=== PATIENT | male | born 1960 | race Two or more races ===

== ENCOUNTER 2016-12-06 18:54 | Emergency (ER) | payer OTHER ==
[~2016-12-06] VITALS: Ht 160 cm; Wt 58.5 kg
[~2016-12-06 18:54] MED LIST: ACETAMINOPHEN325 M1 ORAL; AMLODIPINE BESY10 MG ORAL; ASPIR 8181 MG ORAL; ASPIRIN EC81 MG ORAL; BISAC-EVAC10 MG RECTAL; CHLORTHALIDONE25 MG ORAL; COLACE250 MG ORAL; DIOVAN80 MG ORAL; GLUCOPHAGE850 MG ORAL; HUMALOG100 UNIT/1 SUBQ; KEFLEX500 M1 GT; LANTUS SOL100 UNIT/1 SUBQ; LISINOPRIL20 MG ORAL; LISINOPRIL40 MG ORAL; METFORMIN HCL850 M1 ORAL; MORPHINE SU4 MG/1 ML IVP; Morphine Sulfate IVP; NOVOLOG100 UNITS1 SUBQ; OMEPRAZOLE20 M2 ORAL; PROTONIX40 MG ORAL; ZOFRAN 4 MG4 MG/2 ML IVP; glyberide; metformin
[2016-12-06 19:35] VITALS: BP 101/68
[2016-12-06] MEDS ORDERED: PEPCID40 MG PO (21:03)
[2016-12-06] MEDS ORDERED: NORCO 5-325 TA1 EAC1 ORAL (21:03)
[2016-12-06] MEDS ORDERED: AUGMENTIN 500-1 EACH ORAL (21:03)
[2016-12-06 21:10] VITALS: BP 110/70
[2016-12-06 21:15] VITALS: BP 110/70
--- NOTE | 2016-12-06 21:37 | Emergency Room Report ---
History of Present Illness General Chief Complaint: Abdominal Pain Source: Patient Present Illness HPI The patient is a 56-year-old male presenting for tooth pain and abdominal pain. He states that he had a tooth extraction 3 days prior and he was not prescribed any pain medications or antibiotics. Pain has been increasing and is now an 8/10 dull ache and does not radiate from the left lower jaw. Worse with biting. He is also complaining of mid upper abdominal pain described as a 5/10 dull ache. Does not radiate. He also admits to nausea but denies vomiting. He denies fever, chills, chest pain, shortness of breath, diarrhea, constipation Allergies: Coded Allergies: NO KNOWN ALLERGIES (Unverified Allergy, Unknown, 02/13/15) Patient History Past Medical History: see triage record Pertinent Family History: none Reviewed Nursing Documentation: PMH: Agreed, PSxH: Agreed Nursing Documentation-PMH Past Medical History: No History, Except For Hx Cardiac Problems: No Hx Diabetes: Yes Hx Cancer: No Hx Gastrointestinal Problems: Yes Hx Neurological Problems: No Review of Systems All Other Systems: negative except mentioned in HPI Physical Exam Vital Signs Date Time Temp Pulse Resp B/P Pulse Ox O2 Delivery O2 Flow Rate FiO2 12/06/16 18:59 99.5 108 18 99/66 100 Room Air Sp02 EP Interpretation: reviewed, normal General Appearance: no apparent distress, alert, GCS 15, non-toxic Head: normocephalic, atraumatic Eyes: bilateral eye PERRL, bilateral eye normal inspection ENT: hearing grossly normal, normal pharynx, no angioedema, normal voice, other - L lower premolar extracted. Surrounding erythema. No DC. No bleeding. Tender Neck: full range of motion, supple/symm/no masses Respiratory: chest non-tender, lungs clear, normal breath sounds, speaking full sentences Cardiovascular #1: regular rate, rhythm, no edema Gastrointestinal: normal bowel sounds, soft, no guarding, tenderness - epigastric Genitourinary: normal inspection, no CVA tenderness Musculoskeletal: back normal, gait/station normal, normal range of motion, non- tender, calf tenderness Neurologic: alert, oriented x3, responsive, motor strength/tone normal, sensory intact, speech normal Psychiatric: judgement/insight normal, memory normal, mood/affect normal, no suicidal/homicidal ideation Skin: normal color, no rash, warm/dry, well hydrated Medical Decision Making PA Attestation Dr. Ghosh is my supervising physician. Patient management was discussed with my supervising physician Diagnostic Impression: Primary Impression: Abdominal pain Qualified Codes: R10.13 - Epigastric pain Additional Impression: Dental infection ER Course The patient is a 56-year-old male presenting for tooth pain and abdominal pain. Diagnoses considered but not limited to: Dental renny, dental abscess, toothache , gingivitis, gastritis, gastroenteritis, pancreatitis, among others PE: NAD HEENT: L lower premolar extraction. There is erythema. TTP. No bleeding. No DC Abdomen: Soft. There is tenderness to palpation over epigastric region only. Normal bowel sounds. The patient is given a GI cocktail and states that abdominal pain is decreased. He will be discharged home with a prescription for Augmentin for dental infection, pain medication, and Pepcid. he will follow up with dentist and primary doctor. ER precautions given Last Vital Signs Date Time Temp Pulse Resp B/P Pulse Ox O2 Delivery O2 Flow Rate FiO2 12/06/16 19:35 98.7 88 17 101/68 99 Room Air Status: improved Disposition: HOME, SELF-CARE Condition: Improved Scripts Famotidine (PEPCID) 40 Mg Tablet 40 MG PO DAILY, #7 TAB 0 Refills Prov: TESSA OROZCO.A. 12/06/16 Hydrocodone Bit/Acetaminophen 5-325* (NORCO 5-325 TABLET*) 1 Each Tablet 1 TAB ORAL Q6HR Y for For Pain, #10 TAB Prov: TERZIAN,TESSA P.A. 12/06/16 Amoxicillin/Potassium Clav 500-125 Tablet* (AUGMENTIN 500-125 TABLET*) 1 Each Tablet 1 TAB ORAL THREE TIMES A DAY, #15 TAB Prov: TERZIAN,TESSA P.A. 12/06/16 Patient Instructions: Abdominal Pain, Adult Additional Instructions: I discussed my findings with the patient. All questions and concerns have been answered. Treatment and medication compliance have been addressed. I advised the patient that they need to follow up with PMD in 3-5 days. Return to ED if symptoms worsen, new symptoms arise, or if needed for any reason. Patient verbalized understanding of discharge instructions. TESSA OROZCO Dec 06, 2016 21:37
--- NOTE | 2016-12-07 16:45 | Cardiology Report ---
APPROVED REPORT EKG Measurement Heart [id number] Normal sinus rhythm Normal ECG
== END 2016-12-06 21:15 | disposition home or self-care (01) ==
LOC: EMR 19:43
DX: R10.816 Epigastric abdominal tenderness (principal); K04.7 Periapical abscess without sinus; E11.9 Type 2 diabetes mellitus without complications
CPT/HCPCS: 82962; 93005; 99284